=== PATIENT | female | born 1990 | race Caucasian/White ===

== ENCOUNTER 2024-05-02 17:37 | Emergency (ER) | payer BC, SELFPAY ==
[2024-05-02 17:39] VITALS: BP 120/70
--- NOTE | 2024-05-02 18:06 | ED.GENMED ---
History of Present Illness
General
Chief Complaint: Wound Check/Suture Removal
Source: patient
Exam Limitations: none
Time Seen by Provider: 05/02/24 17:54
History of Present Illness
History of Present Illness:
This s a 33 year old female that comes in with c/o bleeding from her C-sect site. States that she had a a week ago. State that she is on antibiotics as she had E-coli in the placenta and was on antibiotics in the hospital and is still on
Clindamycin. State that tonight she took a shower and was patting her incision line dry. States that there was a scabbed area of dried blood there and it must have came off and blood started to squirt out. States that she has a headache and has
felt lightheaded. Denies any fever, chills, chest pain, SOB, abd pain, nausea, vomiting, diarrhea, urinary burning.
Past History
Past History
ED Past Medical History: Other (Murmur); Negative Asthma, HTN, Hypercholesterolemia or NIDDM
ED Past Surgical History: (X1)
Social History
Tobacco: Non-smoker
Alcohol: Occasional
Personal:
Living: with family
Review of Systems
Review of Systems
All Other Systems: ROS reviewed and negative except as documented in HPI and ROS
Constitutional: Reports no symptoms; Denies fever or chills
EENT: Reports no symptoms
Respiratory: Reports no symptoms; Denies cough or trouble breathing
Cardiac: Reports no symptoms; Denies chest pain
ABD/GI: Reports no symptoms; Denies abdominal pain, nausea, vomiting or diarrhea
: Reports no symptoms; Denies dysuria, frequency or urgency
Musculoskeletal: Reports no symptoms
Skin: Reports other (Bleeding from C-sect site)
Neurological: Reports headache and other (Lightheaded); Denies dizzy
Psychiatric: Reports no symptoms
Phy Exam
General Physical Exam
General Presentation: no apparent distress
General age: appears stated age
General Skin: warm and dry
General Habitus: normal
General Mental: alert
General Hydration: appears well hydrated
ENT Exam
ENT Exam: TM's normal, pharynx normal and neck supple
Eye Exam
Eye Exam: EOMI
Cardiovascular Exam
Cardiovascular Exam: regular rate/rhythm, no edema and normal peripheral pulses
Pulmonary Exam
Pulmonary Exam: lungs clear, no respiratory distress, no rales, chest non tender, no crackles, no rhonchi, no wheezing and no cough
Gastrointestinal Exam
Gastrointestinal Exam: normal bowel sounds, non tender, soft, no organomegaly, no pulsatile mass and non distended
Musculoskeletal Exam
Musculoskeletal Exam: full ROM and no edema
Skin Exam
Skin Exam: normal color, warm/dry, no petechia and redness (around the C-sect incision. ( states that this has increased ), Slightly warm to touch)
Psychiatric Exam
Psychiatric Exam: normal mood/affect
Course
Orders/Labs/Results
Orders:
Orders
05/02/24 18:05
US Abdomen Limited Urgent
Reason For Exam: r/o fluid collection, Bleeding from
05/02/24 18:25
Complete Blood Count/With Diff Urgent
Comprehensive Metabolic Panel Urgent
Lactic Acid Urgent
05/02/24 19:21
Urinalysis Reflex To Culture Urgent
Date Specimen was Collected: 05/02/24
Time Specimen was Collected: 19:14
Urine Microscopic Reflex Cult Urgent
Abnormal Lab Results
05/02/24 05/02/24
18:25 19:21
WBC 14.8 H 10^3/uL
(4.8-10.8)
RBC 3.42 L 10^6/uL
(4.20-5.40)
Hgb 10.0 L g/dL
(12.0-16.0)
Hct 30.6 L %
(37.0-47.0)
MCHC 32.7 L g/dL
(33.0-37.0)
RDW 15.4 H %
(11.5-14.5)
Plt Count 463 H 10^3/uL
(130-400)
Abs Immat Gran (auto) 0.9 H 10^3/uL
(0-0.05)
Absolute Neuts (auto) 10.3 H 10^3/uL
(1.4-6.5)
Absolute Monos (auto) 1.0 H 10^3/uL
(0.1-0.6)
Immature Gran % 5.8 H %
(0-0.5)
Lymphocytes % 15.1 L %
(20.5-51.1)
BUN 29 H mg/dl
(7-17)
Alkaline Phosphatase 185 H U/L
(38-126)
Total Protein 5.9 L g/dl
(6.3-8.2)
Albumin 3.1 L g/dl
(3.5-5.0)
Ur Occult Blood Reflex 1+ A
(Negative)
Leukocyte Esterase Rfl Trace A
(Negative)
Urine RBC 3-6 A /HPF
(0-2)
Urine Bacteria (Reflex) Few A
(Negative)
05/02/24 18:25
05/02/24 18:25
Leukocytosis. H/H low. Plt slightly elevated. Dehydration. Alk phos elevation. Total protein slightly low. Albumin slightly low. Urine negative for infection. Lactic acid 0.9
Vital Signs
Initial and Last Documented VS:
Initial Vital Signs
Temp Pulse Resp BP Pulse Ox
98.8 F 95 18 120/70 100
05/02/24 17:39 05/02/24 17:39 05/02/24 17:39 05/02/24 17:39 05/02/24 17:39
Last Documented Vital Signs
Temp Pulse Resp BP Pulse Ox
98.8 F 95 18 120/70 100
05/02/24 17:39 05/02/24 17:39 05/02/24 17:39 05/02/24 17:39 05/02/24 17:39
MDM/Problems Addressed
Differential Diagnosis Includes:
Surgical infection,
MDM/Problems Addressed:
This is a 33 year old female that comes in with c/o bleeding from her site. States that she was patting her incision and there was an area that was scabbed. States that this must have came off after her shower and blood squirted out.
states at this time that around the incision is know red and it was not like this before.
Will check labs and Get US to look for fluid collection.
Called and spoke with Dr. Marroquin patient ROCK BREAKER. Patient will be discharged from here and her will take her to [facility]. Dr. aMrroquin will make them aware of her coming.
Chronic conditions affecting care:
E-coli infection from placenta.
Acute Exacerbation and/or Progression of Chronic Illness:
E-coli infection from placenta
*Radiology
Radiology exam reviewed: radiology read reviewed (US=Complex fluid collection with slightly heterogeneous low-level internal echoes within the anterior abdomenal wall in the region of the previous section measuring 6.7cm in length by 2.3 X
2.5cm. )
*Pulse Oximetry
Patient hypoxic: no
*EKG
Interpreted by ED Provider?: NA
Rate: EKG- N/A
*Claims Coordinator Interpretation
Rate: Claims Coordinator- N/A
*Critical Care Note
Total Time (30-74mins, 75-104mins- exclusive of procedures): Not Applicable
ED Attending Note
-
Portions of this chart may have been created with voice recognition software.� Occasional wrong word or��sound alike� substitutions may have occurred due to the inherent limitations of voice recognition software.
Discharge Plan
Departure
Patient Disposition: Home (Routine Discharge)
Date of Disposition: 05/02/24
Time of Disposition: 20:24
Patient with high blood pressure during this ER visit?: No
Condition: Good
Covid-19: Not Applicable
Discharge Problem:
Abdominal wall fluid collections
Referrals:
UNKNOWN - PT DOES,NOT KNOW [Family Provider] -
Activity Restrictions/Additional Instructions:
As discussed, after speaking with DR. Mraroquin, you will be discharged and you are to go straight to [facility] Emergency room for further evaluation by your ROCK BREAKER. IF YOU HAVE ANY OTHER CONCERNS PLEASE RETURN TO THE EMERGENCY ROOM.
Interventions
Interventions:
*Risk Screen - Suicide Last Done: 05/02/24 19:27
*General Assessment Last Done: 05/02/24 19:27
*Neglect/Abuse Screening Last Done: 05/02/24 19:27
*ED COVID-19 Vaccine History Last Done: 05/02/24 19:27
ED-Skin Assessment Last Done: 05/02/24 18:00
Discharge Date and Time
Print Language: PASHTO
[2024-05-02 18:50] LABS: Lactic Acid 0.9 mmol/L (0.7-2.0)
[2024-05-02 19:01] LABS: ALT (SGPT) 31 U/L (0-35); AST (SGOT) 21 U/L (14-36); Albumin 3.1 g/dl (3.5-5.0); Alkaline Phosphatase 185 U/L (38-126); Blood Urea Nitrogen 29 mg/dl (7-17); Carbon Dioxide 23 mmol/L (22-30); Chloride 105 mmol/L (98-107); Glucose 90 mg/dl (70-99); Potassium 4.6 mmol/L (3.5-5.1); Sodium 140 mmol/L (135-145); Total Bilirubin 0.2 mg/dl (0.2-1.3); Total Protein 5.9 g/dl (6.3-8.2); eGFR > 60.00
[2024-05-02 19:03] LABS: % Basophils 0.4 % (0-2); % Eosinophils 2.3 % (0-6); % Immature Granulocytes 5.8 % (0-0.5); % Lymphocytes 15.1 % (20.5-51.1); % Monocytes 6.7 % (1.7-9.3); % Neutrophils 69.7 % (42.2-75.2); Absolute Basophils 0.1 10^3/uL (0-0.2); Absolute Eosinophils 0.3 10^3/uL (0-0.7); Absolute Immature Granulocytes 0.9 10^3/uL (0-0.05); Absolute Lymphocytes 2.2 10^3/uL (1.2-3.4); Absolute Neutrophils 10.3 10^3/uL (1.4-6.5); Hematocrit 30.6 % (37.0-47.0); Mean Corp Hgb Conc. 32.7 g/dL (33.0-37.0); Mean Corpuscular Hgb 29.2 pg (27.0-31.0); Mean Corpuscular Volume 89.5 fL (81.0-99.0); Mean Platelet Volume 9.3 fL (7.4-10.4); Nucleated Red Blood Cells % 0 %; Platelet Count 463 10^3/uL (130-400); Red Blood Cell Count 3.42 10^6/uL (4.20-5.40); Red Cell Dist. Width 15.4 % (11.5-14.5); White Blood Cell Count 14.8 10^3/uL (4.8-10.8)
[2024-05-02 19:29] LABS: Urine Albumin Negative (Neg - Trace); Urine Bilirubin Negative (Negative); Urine Character Clear (Clear); Urine Color Yellow; Urine Glucose Negative (Negative); Urine Ketone Negative (Negative); Urine Leukocyte Trace (Negative); Urine Nitrite Negative (Negative); Urine Occult Blood 1+ (Negative); Urine Specific Gravity 1.015 (<1.030); Urine Urobilinogen Negative (Neg - 1+)
[2024-05-02 19:35] LABS: Urine Bacteria Few (Negative)
[2024-05-02 20:33] VITALS: BP 121/89
== END 2024-05-02 20:54 | disposition home or self-care (01) ==
LOC: EMR 17:37
PROVIDERS: Clinical Nurse Specialist Family Health; EMERGENCY PHYSICIAN Emergency Medicine
DX: O90.89 Other complications of the puerperium, not elsewhere classified (principal)
CPT/HCPCS: 99284; 76705; 80053; 81003; 81015; 83605; 85025

== ENCOUNTER 2024-07-09 10:21 | Emergency (ER) | payer BC, SELFPAY ==
[2024-07-09 10:31] VITALS: BP 131/92
[2024-07-09 11:21] LABS: % Basophils 0.3 % (0-2); % Eosinophils 2.6 % (0-6); % Immature Granulocytes 0.4 % (0-0.5); % Lymphocytes 31.1 % (20.5-51.1); % Monocytes 5.9 % (1.7-9.3); % Neutrophils 59.7 % (42.2-75.2); Absolute Eosinophils 0.2 10^3/uL (0-0.7); Absolute Lymphocytes 2.5 10^3/uL (1.2-3.4); Absolute Monocytes 0.5 10^3/uL (0.1-0.6); Absolute Neutrophils 4.8 10^3/uL (1.4-6.5); Hematocrit 43.7 % (37.0-47.0); Hemoglobin 14.1 g/dL (12.0-16.0); Mean Corp Hgb Conc. 32.3 g/dL (33.0-37.0); Mean Corpuscular Hgb 29.3 pg (27.0-31.0); Mean Corpuscular Volume 90.7 fL (81.0-99.0); Mean Platelet Volume 10.1 fL (7.4-10.4); Nucleated Red Blood Cells % 0 %; Platelet Count 304 10^3/uL (130-400); Red Blood Cell Count 4.82 10^6/uL (4.20-5.40)
[2024-07-09 11:29] LABS: Lactic Acid 1.3 mmol/L (0.7-2.0)
[2024-07-09 11:37] LABS: ALT (SGPT) 44 U/L (0-35); AST (SGOT) 27 U/L (14-36); Alkaline Phosphatase 127 U/L (38-126); Blood Urea Nitrogen 19 mg/dl (7-17); Calcium 9.4 mg/dl (8.4-10.2); Carbon Dioxide 25 mmol/L (22-30); Chloride 103 mmol/L (98-107); Glucose 106 mg/dl (70-99); Potassium 4.3 mmol/L (3.5-5.1); Sodium 141 mmol/L (135-145); Total Bilirubin 0.7 mg/dl (0.2-1.3); Total Protein 8.2 g/dl (6.3-8.2); eGFR > 60.00
[2024-07-09 11:49] LABS: Urine Albumin Negative (Neg - Trace); Urine Bilirubin Negative (Negative); Urine Character Clear (Clear); Urine Color Yellow; Urine Glucose Negative (Negative); Urine Ketone Negative (Negative); Urine Leukocyte Negative (Negative); Urine Nitrite Negative (Negative); Urine Occult Blood 3+ (Negative); Urine Urobilinogen Negative (Neg - 1+)
[2024-07-09 12:53] LABS: Urine Squamous Cell >30 /LPF (Few)
[2024-07-09 12:54] LABS: Urine Amorphous Seen
[2024-07-09 12:55] LABS: Urine White Cell 0-2 /HPF (0-5)
--- NOTE | 2024-07-09 13:06 | ED.GENMED ---
History of Present Illness
<DOUG Cao Last Filed: 07/09/24 20:03>
General
Chief Complaint: Flank Pain
Source: patient
Exam Limitations: none
Time Seen by Provider: 07/09/24 12:17
Nursing documentation reviewed up to this point in time: agreed with
History of Present Illness
History of Present Illness:
This is a 34-year-old female with no past medical history who presents emergency department today with concerns of flank pain. Patient reports that she has been having pelvic pain for around a month and burning with urination. She was originally
seen by her [employer]OTOENGRA[employer]ING [employer]ET[employer] MAKER with [facility] and diagnosed with a urinary tract infection and she was started on clindamycin. This was stopped on Jun 21, 2024 when cultures came back showing that her bacteria were resistant to ciprofloxacin she was
subsequently started clindamycin which she stopped recently. She also notes concern regarding her C section incision. She reports that she has mild pain over the site. Back in April, patient had pain at the site and bleeding and was found to have
complex fluid collection and she was subsequently transferred to [facility] where she had her C section. She denies any redness around the incision today. She also notes subjective fevers and chills but states that she has been taking her temperature
and has not had a fever. She also notes rectal pressure.
Past History
<DOUG Cao Last Filed: 07/09/24 20:03>
Past History
ED Past Medical History: Other (Murmur); Negative Asthma, HTN, Hypercholesterolemia or NIDDM
ED Past Surgical History: (X1)
Social History
Tobacco: Non-smoker
Alcohol: Occasional
Personal:
Living: with family
Review of Systems
<DOUG Cao Last Filed: 07/09/24 20:03>
Review of Systems
All Other Systems: ROS reviewed and negative except as documented in HPI and ROS
Phy Exam
<Monica Pike PA-C - Last Filed: 07/09/24 20:03>
Physical Exam
Physical Exam:
General: Patient is well appearing and in no acute distress; non-toxic
Skin: Warm and dry, no rashes or lesions
Head: Normocephalic, atraumatic
Eyes: Sclera non-icteric. EOMs intact.
Cardiac: Regular rate and rhythm, no murmurs
Peripheral Vascular: No lower extremity swelling or edema
Pulm: Normal respiratory effort, no wheezes, rales, or rhonchi
Abdomen: Horizontal incision site noted with no surrounding swelling or erythema. Left sided abdominal tenderness to palpation with no guarding no rebound tenderness.
Neuro: CN II-XII intact, no focal neurologic deficits.
Psychiatric: Appropriate mood and affect.
Sepsis
<Monica Pike PA-C - Last Filed: 07/09/24 20:03>
Sepsis Screening
Sepsis Assessment: Sepsis Ruled Out
Sepsis Screen
Sepsis Screen: Sepsis Ruled Out
Date: 07/09/24
Time: 20:03
Course
<DOUG Cao Last Filed: 07/09/24 20:03>
Orders/Labs/Results
Orders:
Orders
07/09/24 11:01
Complete Blood Count/With Diff Urgent
Comprehensive Metabolic Panel Urgent
HCG, Urine Qualitative Screen Urgent
Date Specimen was Collected: 07/09/24
Time Specimen was Collected: 10:37
Comment: ADD ON PER MONICA PIKE
Lactic Acid Q4H
Comment: ON ICE, CANCEL 2ND ORDER IF FIRST LACTIC ACID LEVEL <2
Lipase Urgent
Comment: ADD ON
Urinalysis Reflex To Culture Urgent
Date Specimen was Collected: 07/09/24
Time Specimen was Collected: 10:37
Urine Microscopic Reflex Cult Urgent
Chlamydia/GC by PCR Urgent
AGATA Source: U
Specimen Description:
Source:: URINE
Date Specimen was Collected: 07/09/24
Time Specimen was Collected: 10:37
Comment: ADD ON PER SHAHZAD,HOPE
07/09/24 13:04
Ondansetron HCl [Zofran] 4 mg PO NOW STA
07/09/24 13:06
CT Abd/pel Without Iv Or Oral Urgent
Comment:
Reason For Exam: left lower quadrant pain, bilateral flank pain
07/09/24 13:15
Add On - Microbiology Urgent
Tests Added?: urine hcg
07/09/24 13:16
Add On- LAB Urgent
Tests Added?: lipase
07/09/24 13:50
Add On - Microbiology Urgent
Tests Added?: urine GC/chlamydia
07/09/24 13:54
Genital Culture Urgent
AGATA Source: Vagina
Specimen Description:
Date Specimen was Collected: 07/09/24
Time Specimen was Collected: 13:48
07/09/24 14:05
Trichomonas - Wet Prep Urgent
AGATA Source: Vagina
Specimen Description:
Date Specimen was Collected: 07/09/24
Time Specimen was Collected: 14:03
Abnormal Lab Results
07/09/24
11:01
MCHC 32.3 L g/dL
(33.0-37.0)
BUN 19 H mg/dl
(7-17)
Glucose 106 H mg/dl
(70-99)
ALT 44 H U/L
(0-35)
Alkaline Phosphatase 127 H U/L
(38-126)
Ur Occult Blood Reflex 3+ A
(Negative)
Urine RBC 3-6 A /HPF
(0-2)
07/09/24 11:01
07/09/24 11:01
Vital Signs
Initial and Last Documented VS:
Initial Vital Signs
Temp Pulse Resp BP Pulse Ox
99.0 F 108 18 131/92 98
07/09/24 10:31 07/09/24 10:31 07/09/24 10:31 07/09/24 10:31 07/09/24 10:31
Last Documented Vital Signs
Temp Pulse Resp BP Pulse Ox
99.0 F 108 18 125/80 98
07/09/24 10:31 07/09/24 10:31 07/09/24 10:31 07/09/24 16:23 07/09/24 10:31
<Papo Amor MD - Last Filed: 07/09/24 13:45>
Orders/Labs/Results
Orders:
Orders
07/09/24 11:01
Complete Blood Count/With Diff Urgent
Comprehensive Metabolic Panel Urgent
HCG, Urine Qualitative Screen Urgent
Date Specimen was Collected: 07/09/24
Time Specimen was Collected: 10:37
Comment: ADD ON PER MONICA PIKE
Lactic Acid Q4H
Comment: ON ICE, CANCEL 2ND ORDER IF FIRST LACTIC ACID LEVEL <2
Lipase Urgent
Comment: ADD ON
Urinalysis Reflex To Culture Urgent
Date Specimen was Collected: 07/09/24
Time Specimen was Collected: 10:37
Urine Microscopic Reflex Cult Urgent
Chlamydia/GC by PCR Urgent
AGATA Source: U
Specimen Description:
Source:: URINE
Date Specimen was Collected: 07/09/24
Time Specimen was Collected: 10:37
Comment: ADD ON MONICA RECINOS
07/09/24 13:04
Ondansetron HCl [Zofran] 4 mg PO NOW STA
07/09/24 13:06
CT Abd/pel Without Iv Or Oral Urgent
Comment:
Reason For Exam: left lower quadrant pain, bilateral flank pain
07/09/24 13:15
Add On - Microbiology Urgent
Tests Added?: urine hcg
07/09/24 13:16
Add On- LAB Urgent
Tests Added?: lipase
07/09/24 13:50
Add On - Microbiology Urgent
Tests Added?: urine GC/chlamydia
07/09/24 13:54
Genital Culture Urgent
AGATA Source: Vagina
Specimen Description:
Date Specimen was Collected: 07/09/24
Time Specimen was Collected: 13:48
07/09/24 14:05
Trichomonas - Wet Prep Urgent
AGATA Source: Vagina
Specimen Description:
Date Specimen was Collected: 07/09/24
Time Specimen was Collected: 14:03
Abnormal Lab Results
07/09/24
11:01
MCHC 32.3 L g/dL
(33.0-37.0)
BUN 19 H mg/dl
(7-17)
Glucose 106 H mg/dl
(70-99)
ALT 44 H U/L
(0-35)
Alkaline Phosphatase 127 H U/L
(38-126)
Ur Occult Blood Reflex 3+ A
(Negative)
Urine RBC 3-6 A /HPF
(0-2)
07/09/24 11:01
07/09/24 11:01
Vital Signs
Initial and Last Documented VS:
Initial Vital Signs
Temp Pulse Resp BP Pulse Ox
99.0 F 108 18 131/92 98
07/09/24 10:31 07/09/24 10:31 07/09/24 10:31 07/09/24 10:31 07/09/24 10:31
Last Documented Vital Signs
Temp Pulse Resp BP Pulse Ox
99.0 F 108 18 125/80 98
07/09/24 10:31 07/09/24 10:31 07/09/24 10:31 07/09/24 16:23 07/09/24 10:31
<Monica Pike PA-C - Last Filed: 07/09/24 20:03>
MDM/Problems Addressed
Differential Diagnosis Includes:
Interstitial cystitis, acute cystitis, pyelonephritis, nephrolithiasis
MDM/Problems Addressed:
34-year-old female presents emergency department today with concerns of flank pain and abdominal pain with dysuria and pelvic pain. She has been on 2 different antibiotics without relief of her symptoms. She also notes that she has had a brief
episode of foul smell from her vagina and she did take intravaginal metronidazole which did not improve her symptoms. She denies any vaginal discharge. On physical exam she is well-appearing in no acute distress afebrile she does have left-sided
tenderness to palpation in her abdomen, positive CVA tenderness. We did send off a UA with reflex to culture and we did send patient for CAT scan. CAT scan negative for any kidney stone. Suspect pyelonephritis versus interstitial cystitis. Will
trial patient on a longer course of cefdinir and have her follow-up with her primary. Urology referral also provided. In light of patient's previous symptoms of vaginal odor and pelvic pain, we did advise patient to self swab and vaginal culture
swab trichomonas swab sent off. Patient stable for discharge.
Chronic conditions affecting care:
n/a
<Monica Pike PA-C - Last Filed: 07/09/24 20:03>
*Pulse Oximetry
Patient hypoxic: no
*Critical Care Note
Total Time (30-74mins, 75-104mins- exclusive of procedures): Not Applicable
Data Reviewed
Review of Other/Old Records Reveals: Records (Reviewed previous ER physician documentation from 05/02/2024 patient seen for normal fluid collection under her incision) and Discharge Summary (No discharge summaries in [facility] to review)
Source: patient and records
<Monica Pike PA-C - Last Filed: 07/09/24 20:03>
Patient Management
Escalation/DeEscalation of care consider admission/obs:
admit not indicated
ED Attending Note
<Monica Pike PA-C - Last Filed: 07/09/24 20:03>
-
Portions of this chart may have been created with voice recognition software.� Occasional wrong word or��sound alike� substitutions may have occurred due to the inherent limitations of voice recognition software.
<Papo Amor MD - Last Filed: 07/09/24 13:45>
ED Attending Note
Patient seen and examined by attending physician: Yes
I performed the substantive portion of visit, reviewed & personally made and approve the management plan that is documented in note by myself or MADONNA.: Yes
ED Attending Note:
I have seen and evaluated the patient with a [id number] encounter. I have spoken to the [PA] and involved in the medical history, the physical exam, medical decision making.
Evaluation and management service: agree unless noted differently below.
Results interpretation: agree unless noted differently below.
34-year-old female presenting to the emergency department with concerns for urine infection. Patient states that she was diagnosed with a UTI and started on clindamycin. Unfortunately patient was switched over to ciprofloxacin as her urine culture
was not sensitive to clinda. She states that she finished that 3 days ago. However she has been having ongoing dysuria prepubic pain as well as bilateral flank pain. She has been having some subjective fevers. No vomiting. No diarrhea. She did
notice vaginal discharge. She did try intravaginal Flagyl for possible BV but that that did not help. On exam patient is resting comfortably. Abdomen is soft nontender nondistended. She does have CVA tenderness. Concern for pyelonephritis
versus kidney stone versus STI. Could be component of interstitial cystitis. Blood work obtained prior to my evaluation is unremarkable. Urine unfortunately is contaminated with significant epithelial cells. Will obtain CT scan and obtain
vaginal swabs as well. Anticipate discharge with change in antibiotics.
Discharge Plan
Departure
Patient Disposition: Home (Routine Discharge)
Date of Disposition: 07/09/24
Time of Disposition: 16:18
Patient with high blood pressure during this ER visit?: Yes
Condition: Good
Discharge Problem:
Flank pain, Dysuria
Instructions: Flank Pain (DC), Urinary tract infection - Discharge instructions, BLOOD PRESSURE
Prescriptions:
New
cefdinir 300 mg capsule
300 mg PO BID 10 Days Qty: 20 0RF
Referrals:
Agnes Vega NP [Family Provider] -
Deuce Espinoza MD [Active] - Call in 1-3 days for appt
Activity Restrictions/Additional Instructions:
Please start taking cefdinir. Please take one tablet twice daily for 10 days.
Please start taking Miralax, you can get the powdered supplement over the counter and dissolve one heaping tablespoon in 4-8 ounces of beverage once daily for a 1-2 week trial.
Please call the attached number to schedule an appointment with urology/urogynecology.
Please return to the emergency department should you develop fevers 100.4 or greater, intractable nausea or vomiting, chest pain, shortness of breath, bloody stools, lightheadedness, dizziness, or any other isgns or symptoms worrisome to you.
Interventions
Interventions:
*Risk Screen - Suicide Last Done: 07/09/24 10:31
*General Assessment Last Done: 07/09/24 10:31
*Neglect/Abuse Screening Last Done: 07/09/24 15:43
ED- Fall Risk Assessment Last Done: 07/09/24 16:37
*ED COVID-19 Vaccine History Last Done: 07/09/24 15:43
*Nursing Disposition Last Done: 07/09/24 16:37
FA-Dyodda-Isddxtovxe Assessment Last Done: 07/09/24 15:43
ED-Female Genitourinary Assessment Last Done: 07/09/24 15:43
Discharge Date and Time
Discharge Date/Time: 07/09/24 16:37
Print Language: MOROCCAN
[2024-07-09] MEDS: ZOFRAN 4 MG PO (13:09)
[2024-07-09 13:31] LABS: HCG, Urine Qualitative Screen Negative
[2024-07-09 13:59] LABS: Lipase 65 U/L (23-300)
[2024-07-09 16:23] VITALS: BP 125/80
== END 2024-07-09 16:37 | disposition home or self-care (01) ==
LOC: EMR 10:21
PROVIDERS: Emergency Medicine; EMERGENCY PHYSICIAN Student in an Organized Health Care Education/Training Program; FAMILY PHYSICIAN Nurse Practitioner Gerontology
DX: R10.9 Unspecified abdominal pain (principal); R30.0 Dysuria; R03.0 Elevated blood-pressure reading, without diagnosis of hypertension
CPT/HCPCS: 99284; 74176; 80053; 81003; 81015; 81025; 83605; 83690; 85025; 87070; 87210; 87491; 87591

== ENCOUNTER → 2025-05-21 08:04 | Outpatient (REF) | payer OTHER, SELFPAY | LOC: PNTC 08:04 | PROVIDERS: ATTENDING PHYSICIAN Obstetrics & Gynecology | DX: Z36.0 Encounter for antenatal screening for chromosomal anomalies (principal); Z36.82 Encounter for antenatal screening for nuchal translucency | CPT/HCPCS: 76801; 76813 ==

== ENCOUNTER → 2025-05-22 13:18 | Outpatient (REF) | payer OTHER, SELFPAY | LOC: RAD 13:18 | PROVIDERS: ATTENDING PHYSICIAN Obstetrics & Gynecology | DX: O26.851 Spotting complicating pregnancy, first trimester (principal) | CPT/HCPCS: 76801; 76817 ==